=== PATIENT | male | born 1985 | race Caucasian/White ===

== ENCOUNTER 2021-01-22 12:28 | Inpatient (IN) | payer BC ==
[~2021-01-22] VITALS: Ht 193 cm; Wt 115.7 kg
[2021-01-22] MEDS ORDERED: PIPERACILLIN SODIUM/TAZOBACTAM 3.375 G in IV DEXTROSE 5% 50 ML IV ONE (13:00)
[2021-01-22] MEDS ORDERED: IV NORMAL SALINE 1000 ML BAG IV ONE (13:00)
[2021-01-22] MEDS ORDERED: VANCOMYCIN IV 1,000 MG in IV DEXTROSE 5% 250 ML IV ONE (13:00)
--- NOTE | 2021-01-22 13:20 | NUR ---
35 years old male on home antibiotic presents to er with right lower extremity redness/swelling, able to walk with steady gait.
[2021-01-22 13:21] LABS: HEMATOCRIT 46.9 % (36.7-47.1); MEAN CORPUSCULAR HEMOGLOBIN 29.2 uug (23.8-33.4); MEAN CORPUSCULAR VOLUME 88.3 fL (73.0-96.2); PLATELET COUNT (AUTO) 258 K/uL (152-348)
[2021-01-22] MEDS ORDERED: PIPERACILLIN/TAZOBACTAM/D5W 50 ML IV ONE (13:33)
[2021-01-22 13:36] LABS: BILIRUBIN,DIRECT 0.1 mg/dL (0.0-0.2); BILIRUBIN,TOTAL 0.4 mg/dL (0.2-1.0); CREATININE 1.1 mg/dL (0.6-1.3); POTASSIUM 4.4 mmol/L (3.5-5.1); TOTAL PROTEIN, SERUM 8.1 g/dL (6.4-8.2)
[2021-01-22] MEDS ORDERED: CIPR500T5 PO (13:54)
[2021-01-22] MEDS ORDERED: VANCOMYCIN IV 200 ML ONE (14:23)
--- NOTE | 2021-01-22 15:30 | NUR ---
patient reassess tolerated iv antibiotic well, no acute changes awaiting for admit bed.
[2021-01-22] MEDS ORDERED: MAGNESIUM HYDROXIDE 30 ML LIQUID UDC PO PRN ×2 (17:15→20:30)
[2021-01-22] MEDS ORDERED: HYDROCODONE/APAP 5-325MG TABLET PO PRN ×2 (17:15→20:30)
[2021-01-22] MEDS ORDERED: ONDANSETRON 4 MG/2 ML VIAL IV PRN ×2 (17:15→20:30)
[2021-01-22] MEDS ORDERED: ACETAMINOPHEN 325 MG TABLET PO PRN ×2 (17:15→20:30)
--- NOTE | 2021-01-22 18:57 | NUR ---
patient denies pain, dinner tray given tolerated well, vital stable, bed pending.
--- NOTE | 2021-01-22 19:14 | NUR ---
Report recieved on pt. from RN for continuity of care.
--- NOTE | 2021-01-22 19:16 | NUR ---
covid swab collected/sent to lab report endorsed to nurse Courtney all questions answered.
[2021-01-22] MEDS ORDERED: PIPERACILLIN SODIUM/TAZOBACTAM 4.5 G in IV DEXTROSE 5% 50 ML IV SCH (22:00)
[2021-01-22 22:05] VITALS: BP 126/79
[2021-01-22] MEDS ORDERED: VANCOMYCIN 1000 MG VIAL ONE ×2 (22:35→23:57)
[2021-01-22] MEDS ORDERED: PIPERACILLIN/TAZO 4.5 GM VIAL IV ONE (22:36)
--- NOTE | 2021-01-22 23:00 | NUR ---
2200 & 2300 Vanco + Zosyn given on time despite time on [facility]ite[facility].
[2021-01-22] MEDS: PIPERACILLIN SODIUM/TAZOBACTAM 3.375 G in IV DEXTROSE 5% 50 ML IV SCH (23:47)
[2021-01-23] MEDS: VANCOMYCIN IV 1,000 MG in IV DEXTROSE 5% 250 ML IV SCH ×4 (01:02→22:10)
[2021-01-23] MEDS ORDERED: PIPERACILLIN SODIUM/TAZO 3.375 GM VIAL ONE (02:15)
[2021-01-23] MEDS: PIPERACILLIN SODIUM/TAZOBACTAM 3.375 G in IV DEXTROSE 5% 50 ML IV SCH ×4 (02:23→21:32)
[2021-01-23 04:55] VITALS: BP 118/78
[2021-01-23] MEDS: PANTOPRAZOLE SODIUM 40 MG TABLET.DR PO SCH (06:28)
[2021-01-23] MEDS ORDERED: PANTOPRAZOLE SODIUM 40 MG TABLET.DR PO SCH (07:00)
[2021-01-23] MEDS ORDERED: ENOXAPARIN SODIUM 40 MG/0.4 ML DISP.SYRIN SQ SCH ×2 (09:00)
[2021-01-23 11:35] VITALS: BP 117/78
--- NOTE | 2021-01-23 14:12 | NUR ---
Hold Vancomycin dose at 0600 on 01/24/21 if Vanco Trough >20 - per pharmacy Will endorse to PM shift.
[2021-01-23 16:56] VITALS: BP 127/77
[2021-01-23 20:15] VITALS: BP 132/81
--- NOTE | 2021-01-23 20:49 | NUR ---
iv cannula noted reddened and will reinsert a new iv cannula
--- NOTE | 2021-01-23 23:28 | NUR ---
ambulated to the bathroom independently .voided freely.back to bed
[2021-01-24] MEDS: PIPERACILLIN SODIUM/TAZOBACTAM 3.375 G in IV DEXTROSE 5% 50 ML IV SCH ×3 (02:44→15:42)
[2021-01-24 04:52] VITALS: BP 118/75
--- NOTE | 2021-01-24 05:16 | NUR ---
will wait for the vancomycin trough result,
[2021-01-24 05:19] LABS: HEMATOCRIT 44.7 % (36.7-47.1); MEAN CORPUSCULAR HEMOGLOBIN 29.7 uug (23.8-33.4); MEAN CORPUSCULAR VOLUME 89.2 fL (73.0-96.2); PLATELET COUNT (AUTO) 257 K/uL (152-348)
[2021-01-24 05:31] LABS: CREATININE 1.1 mg/dL (0.6-1.3); MAGNESIUM 2.4 mg/dL (1.8-2.4); PHOSPHOROUS 4.5 mg/dL (2.5-4.9); POTASSIUM 4.2 mmol/L (3.5-5.1)
[2021-01-24] MEDS: VANCOMYCIN IV 1,000 MG in IV DEXTROSE 5% 250 ML IV SCH ×2 (05:50→13:31)
[2021-01-24] MEDS: PANTOPRAZOLE SODIUM 40 MG TABLET.DR PO SCH (06:27)
--- NOTE | 2021-01-24 08:00 | NUR ---
RECEIVED REPORT ON PT, PT IN BED RESTING, IV ON THE RIGHT HAND 22G SALINE LOCK. PT ON ROOM AIR, NO SIGNS OF DISTRESS, NO REPORTS OF PAIN, CALL LIGHT WITHIN REACH, BRP TO RESTROOM. PT A/OX4, WILL CONTINUE WITH PLAN OF CARE.
--- NOTE | 2021-01-24 10:30 | NUR ---
PT C/O PAIN AT IV SITE, INFILTRATED. NEW IV STARTED ON THE LEFT AC 20G, PATENT, INTACT.
[2021-01-24 11:48] VITALS: BP 110/78
[2021-01-24] MEDS ORDERED: AMOX-430 PO (15:13)
[2021-01-24 15:27] VITALS: BP 111/68
--- NOTE | 2021-01-24 17:00 | NUR ---
PT DISCHARGED HOME WITH ALL BELONGINGS, AND PRESCRIPTION. PT EDUCATED ON FOLLOW UP APPOINTMENTS, MEDICATIONS AND DIAGNOSIS. PT VITALS WNL, PT IV AND ID BAND REMOVED, PT AMBULATORY, ON ROOM AIR, NO SIGNS OF DISTRESS, NO REPORTS OF PAIN, ALL MEDICATIONS GIVEN ORDERED, ALL NEEDS MET THIS SHIFT. PT LEFT VIA PRIVATE CAR.
== END 2021-01-24 17:00 | disposition home or self-care (01) | DRG 603 ==
LOC: ER 12:28 → MEDSURG3 20:29
PROVIDERS: ADMIT Internal Medicine; ATTEND Internal Medicine
DX: L03.115 Cellulitis of right lower limb (principal); E66.3 Overweight; I10 Essential (primary) hypertension; Z20.822 Contact with and (suspected) exposure to COVID-19; R03.0 Elevated blood-pressure reading, without diagnosis of hypertension; Z68.31 Body mass index [BMI] 31.0-31.9, adult
CPT/HCPCS: 36415; 83605; 83735; 84100; 85025; 85730; 87040; A4663; G0378; J1650; J2543; J3370; J7030; J7050; J7060